=== PATIENT | female | born 1935 | race Caucasian/White ===

== ENCOUNTER 2016-12-11 12:18 | Inpatient (IN) ==
[2016-12-11] MEDS ORDERED: ONDANSETRON 4 MG/2 ML VIAL IV PRN (14:31)
[2016-12-11] MEDS ORDERED: DOCUSATE SODIUM 100 MG CAPSULE PO PRN (14:31)
[2016-12-11] MEDS ORDERED: ACETAMINOPHEN 325 MG TABLET PO PRN (14:31)
--- NOTE | 2016-12-11 15:06 | Hospitalist History & Physical ---
<Gely Pollockda - Last Filed: 12/11/16 15:04> Assessment and Plan (1) Dyspnea Status: Acute Assessment and plan: We will admit this patient. We will perform a complete cardiac work-up. We will obtain echocardiogram and carotid dopplers. Consult Cardiology for evaluation. Current Visit: Yes (2) Afib Status: Acute Assessment and plan: Stable at the time of assessment. Will monitor for abnormalities. Will resume all home medications as previously ordered. Current Visit: Yes History of Present Illness Chief complaint: shortness of breath History of present illness: This is very pleasant and vibrant 81 year-old elderly female that presents to [facility] as a direct [place] [facility] [place] She has an impressive medical history of cerebral vascular accident, hypertension, atrial fibrillation. She has also an extensive surgical history of appendectomy , hysterectomy, and numerous orthopedic procedures. She is very independent. [place] She reports that she stills drives her tractor and car every day. She states that "she does what she wants to do when she feels like it" and "I like to work'. The patient was seen and evaluated today for dyspnea. She exhibited dyspnea at rest and minimal exertion. She reports the onset of dyspnea "a couple of days ago". She reports that her neighbor's dog and she dug a hole for them to bury the dog in. Her symptoms became progressively worse as the time progressed. Her PCP suggested that the source of her dyspnea is cardiac and attempted to make a cardiology consultation for her; however the appointment was scheduled for late next week. The were concerned and decided to sent to her the hospital as a direct admission. The hospitalist service was consulted for medical management. A cardiology consult has been requested for evaluation. Home Medications Medication Instructions Recorded Confirmed Type Aspirin [Ecotrin] 325 mg PO DAILY 12/11/16 12/11/16 History Calcium Carbonate 600 mg PO DAILY 12/11/16 12/11/16 History Dimenhydrinate [Dramamine Chew tab] 12.5 tablet PO DAILY PRN 12/11/16 12/11/16 History Dipyridamole 25 tablet PO TID 12/11/16 12/11/16 History Hyoscyamine Tab [Levsin Tab] 0.125 tablet PO BID PRN 12/11/16 12/11/16 History Meloxicam 15 tablet PO DAILY 12/11/16 12/11/16 History Multivitamin [One Daily] 1 each PO DAILY 12/11/16 12/11/16 History Verapamil HCl [Verapamil ER Cap] 240 tablet PO DAILY 12/11/16 12/11/16 History hydroCHLOROthiazide 12.5 mg PO DAILY 12/11/16 12/11/16 History [Hydrochlorothiazide] Allergies Allergy/AdvReac Type Severity Reaction Status Date / Time mesalamine [From Asacol] Allergy Verified 12/11/16 14:03 sulfamethoxazole Allergy Verified 12/11/16 14:03 [From Bactrim] trimethoprim [From Bactrim] Allergy Verified 12/11/16 14:03 Medical,Surgical,& Family Hx - Medical History Cardio: History of: Cardiac Dysrhythmia (Afib), Hypertension Neurology: History of: Cerebrovascular Accident Musculoskeletal: History of: Musculoskeletal Problems (arthritis) - Surgical History Abdominal Surgeries: Surgical HX of: Appendectomy (1948) Reproductive Surgeries: Surgical HX of;: Hysterectomy (1983) Orthopedic Surgeries: Surgical HX of;: Total Knee Replacement (2003) - Family History Family History: Reports;: Family Cancer (brother), Family Hematology (father blood clot in colon), Family Stroke (mother) - Social History Smoking Status: Never smoker Have you smoked in the last 12 months: No Frequency of Alcohol Use: None Type of Drug Use: None Marital Status: Single Lives With:: Alone Functional capacity: independent ambulation 12 point system: reviewed and no additional remarkable complaints except as stated - Constitutional Constitutional: Present: fatigue, malaise. Absent: anorexia, chills, daytime sleepiness, excessive sweating, lethargy, weakness, weight gain - EENT Eyes: Absent: diplopia, loss of vision Ears: Absent: ear discharge, ear pain, tinnitus Nose, mouth and throat: Absent: epistaxis, headache(s), sinus pressure, vertigo - Cardiovascular Cardiovascular: Present: dyspnea, dyspnea on exertion, other. Absent: chest pain at rest, chest pain with activity, diaphoresis, edema, radiating jaw, neck or arm pain, lightheadedness, orthopnea, palpitations, PND - Respiratory Respiratory: Present: dyspnea, dyspnea on exertion, pain on inspiration. Absent : cough - Gastrointestinal Gastrointestinal: Absent: abdominal pain, change in bowel habits, constipation, diarrhea, dyspepsia, dysphagia, melena, nausea, vomiting - Genitourinary Genitourinary: Absent: dysuria, flank pain, hematuria, urinary frequency, urinary hesitancy, urinary incontinence - Musculoskeletal Musculoskeletal: Absent: back pain, joint swelling, limited range of motion, muscle cramps, muscle weakness - Neurological Neurological: Absent: abnormal gait, abnormal speech, behavioral changes, dizziness, focal weakness, frequent falls, headache(s), numbness, paresthesias, syncope - Psychiatric Psychiatric: Absent: auditory hallucinations, confusion, memory loss, suicidal ideation, visual hallucinations - Endocrine Endocrine: Absent: polydipsia, polyphagia, polyuria Exam - Constitutional Vitals: Period Temp Pulse Resp BP Sys/Powell Pulse Ox Last 24 Hr 98.3 F 71 20 140/71 95 General appearance: normal weight, no acute distress - Head Head exam: Present: normal inspection, normocephalic, atraumatic - Eye Eye exam: Present: EOMI. Absent: periorbital swelling, scleral icterus, laceration to eyelids Pupils: Present: CATIE, normal accommodation - ENT ENT exam: Present: normal exam - Neck Neck exam: Present: normal inspection. Absent: lymphadenopathy, meningismus, tenderness, thyromegaly - Respiratory Respiratory exam: Present: clear to auscultation bilaterally - Cardiovascular Cardiovascular exam: Present: irregular rhythm. Absent: carotid bruit, diastolic murmur, gallop, JVD, systolic murmur - GI/Abdominal GI/Abdominal exam: Present: normal bowel sounds, soft. Absent: distended, guarding, mass, tenderness - Extremities Exam Extremities exam: Present: normal inspection, full ROM. Absent: edema - Back Exam Back exam: Present: normal inspection. Absent: CVA tenderness (L), CVA tenderness (R) - Neurological Exam Neurological exam: Present: alert, oriented X3, CN II-XII intact - Psychiatric Psychiatric exam: Present: normal affect. Absent: homicidal ideation, suicidal ideation - Skin Skin exam: Present: normal color, warm, erythema Quality Measures - VTE Contraindication to Pharmacological VTE Prophylaxis: Clinical assessment deems Pt at low risk, no prophalaxis needed - Stroke Symptom Onset Unknown: No <Amanda Robbins - Last Filed: 12/11/16 17:47> History of Present Illness History of present illness: Ms. Calderón is a 81 year old female with SOB. Clinically she doesnt sound wet.Echo showed left ventricular EF-65% with diastolic parameters most consistent with grade 2 diastolic dysfunction or pseudonormalization. Plan -FBC -CMP -Ddimer, if positive get CT chest vs VQ to r/o PE depending on the kidney statuscbc -Cardiac enzymes -CXR r/o pneumonia -cultures -UA Exam - Constitutional Vitals: Period Temp Pulse Resp BP Sys/Powell Pulse Ox Last 24 Hr 98.0 F-98.3 F 68-71 18-20 130-140/69-71 94-95
[2016-12-11 15:42] LABS: Risk Ratio 3.79; Thyroid Stimulating Hormone 10.9 uIU/ml (0.358-3.74); VLDL CHOLESTEROL 47.2 MG/DL
--- NOTE | 2016-12-11 15:47 | ECHO Report ---
January, Jackelin Exam Date: 12/11/2016 15:01 Referring Physician: Technologist: Latia Echeverria RDCS Age: 81 Ht (in): 64 Wt (lb): 149 Gender: F Exam Location: [facility] Echo Indications: Shortness of breath, Essential (primary) hypertension BP: 140 / 71 HR: 75 Rhythm: Sinus Technical Quality: IMPRESSIONS Left ventricular ejection fraction is greater than 65 %. Diastolic parameters are most consistent with grade 2 diastolic dysfunction or pseudonormalization. There is no regional wall motion normalities. Mild tricuspid valve regurgitation. Tricuspid regurgitation velocities suggest a RVSP of 37 mmHg plus the right atrial pressure. There is mild tricuspid insufficiency and mild pulmonic insufficiency with the PA pressure estimated to be 37 mmHg/4 mmHg plus right atrial pressure added to each component MEASUREMENTS (Male / Female) Normal Values 2D ECHO LV Diastolic Diameter PLAX 5.1 cm 4.2 - 5.9 / 3.9 - 5.3 cm LV Systolic Diameter PLAX 2.8 cm LV Fractional Shortening PLAX 44.7 % IVS Diastolic Thickness 0.7 cm 0.6 - 1.0 / 0.6 - 0.9 cm LVPW Diastolic Thickness 0.7 cm 0.6 - 1.0 / 0.6 - 0.9 cm RV Internal Dim ED PLAX 2.1 cm Aortic Root Diameter 3.3 cm LA Systolic Diameter LX 4.3 cm 3.0 - 4.0 / 2.7 - 3.8 cm DOPPLER TR Peak Velocity 303.0 cm/s TR Peak Gradient 36.7 mmHg FINDINGS Left Ventricle Normal left ventricular cavity size. Normal left ventricular wall thickness. Left ventricular ejection fraction is greater than 65 %. Diastolic parameters are most consistent with grade 2 diastolic dysfunction or pseudonormalization. There is no regional wall motion normalities. Right Ventricle The right ventricle is normal in size and function. Right Atrium The right atrium is normal in size. Left Atrium The left atrium is mildly enlarged. Mitral Valve Mitral valve sclerosis. Mild mitral annular calcification. Mild mitral valve regurgitation. Aortic Valve Morphologically normal aortic valve without significant sclerosis or stenosis. There is no aortic regurgitation. Tricuspid Valve Morphologically normal tricuspid valve. Mild tricuspid valve regurgitation. Tricuspid regurgitation velocities suggest a RVSP of 37 mmHg plus the right atrial pressure. Pulmonic Valve Morphologically normal pulmonic valve. Mild pulmonary valve regurgitation with EDV of 1 m/sec Pericardium Normal pericardium without effusion. Aorta Normal ascending aorta dimension. Neeru Amin (Electronically Signed) Final Date: 11 December 2016 15:46
--- NOTE | 2016-12-11 16:09 | Cardiology Consult Note ---
Jerry Dennis April RN, am scribing for, and in the presence of, EloisaSiddiqiDO 16 :07. Assessment and Plan - Time spent with patient Time spent with patient: Greater than 30 minutes (Due to assessment, planning, documentation, medication evaluation) (1) Dyspnea Status: Acute Assessment and plan: This is a very long differential. The patient has an elevated TSH but a normal free T4. She has a normal ejection fraction and grade 2 diastolic dysfunction. We will continue her verapamil for now. Consider noninvasive evaluation with stress test as an outpatient if this does not improve or become explained by other diagnosis Current Visit: Yes Qualifiers: Dyspnea type: dyspnea on exertion Qualified Code(s): R06.09 - Other forms of dyspnea (2) Hypertension Status: Chronic Current Visit: Yes (3) Palpitations Status: Acute Assessment and plan: The patient is experienced palpitations for many many years they seem to be getting worse she has them when she exerts herself. Current Visit: Yes History of Present Illness - Data of Consult Patient: new to practice Consult date: 12/11/16 Requesting Physician: Nicolas Pollock - Consult Narrative Reason for consult: Dyspnea History of present illness: Ms. Calderón is a 81 year old female never seen a intermediate accountant and has a history of hypertension and stroke (2000). Surgical history includes bilateral cataract, appendectomy, hysterectomy, left total knee replacement, left thigh, and right ankle. Family history includes brother with cancer, mother with stroke, and father with blood clots in his colon. She states she is a lifetime non-smoker Ms. Calderón states she is very active and was in her usual state of health until this past Wednesday when she noticed she became more fatigued with any exertion. She also noticed that she was short of breath on exertion and was having palpitations almost constantly. In the past she has had palpitations occasionally for several years. She denies having any chest pain, states she does have some shoulder soreness but she thinks that was related to her digging with a shovel. Symptoms continue to get worse and today she sought further evaluation with her primary doctor who sent her to the hospital for admission. Currently she is lying in bed in no acute distress. She states she is only short of breath when she exerts herself but does get short of breath just going to the bathroom. She denies having any palpitations at the present. Telemetry monitoring shows sinus rhythm with heart rates in the 70s. Blood pressure 140/ 71, O2 sat 95% on room air. Ms. Calderón states that she was in her usual state of health she thinks that she overdid it Wednesday as dictated above and she has been not feeling well since that time. She has fatigue she has "fluttering" in her chest and dyspnea on exertion she is dyspneic at rest and dyspneic when she exerts herself even worse. She has had palpitations for many years. She is a retired RN from [employer]. She denies any chest pain she has no family history of premature atherosclerotic heart disease I reviewed her transthoracic echo she has an ejection fraction of greater than 65% and a right ventricular systolic pressure estimated to be 37 mmHg plus the right atrial pressure. I saw and examined with Ms. Lindsey CC: Amanda Robbins MD - Home Medications and Allergies Home Medications: Home Medications Medication Instructions Recorded Confirmed Type Aspirin [Ecotrin] 325 mg PO DAILY 12/11/16 12/11/16 History Calcium Carbonate 600 mg PO DAILY 12/11/16 12/11/16 History Dimenhydrinate [Dramamine Chew tab] 12.5 tablet PO DAILY PRN 12/11/16 12/11/16 History Dipyridamole 25 tablet PO TID 12/11/16 12/11/16 History Hyoscyamine Tab [Levsin Tab] 0.125 tablet PO BID PRN 12/11/16 12/11/16 History Meloxicam 15 tablet PO DAILY 12/11/16 12/11/16 History Multivitamin [One Daily] 1 each PO DAILY 12/11/16 12/11/16 History Verapamil HCl [Verapamil ER Cap] 240 tablet PO DAILY 12/11/16 12/11/16 History hydroCHLOROthiazide 12.5 mg PO DAILY 12/11/16 12/11/16 History [Hydrochlorothiazide] Allergies/Adverse Reactions: Allergies Allergy/AdvReac Type Severity Reaction Status Date / Time mesalamine [From Asacol] Allergy Verified 12/11/16 14:03 sulfamethoxazole Allergy Verified 12/11/16 14:03 [From Bactrim] trimethoprim [From Bactrim] Allergy Verified 12/11/16 14:03 - Constitutional Constitutional: Present: as per HPI - EENT Eyes: Present: requires corrective lense Ears: Present: decreased hearing Nose, mouth and throat: Absent: epistaxis, headache(s), neck pain - Cardiovascular Cardiovascular: Present: dyspnea on exertion, lightheadedness, palpitations. Absent: chest pain at rest, chest pain with activity, diaphoresis, edema, radiating jaw, neck or arm pain, orthopnea - Respiratory Respiratory: Present: dyspnea on exertion. Absent: hemoptysis, wheezing - Gastrointestinal Gastrointestinal: Absent: abdominal pain, constipation, diarrhea, melena, nausea , vomiting - Genitourinary Genitourinary: Absent: dysuria, hematuria - Musculoskeletal Musculoskeletal: Present: limited range of motion. Absent: back pain - Neurological Neurological: Present: dizziness. Absent: abnormal gait, abnormal speech, confusion, frequent falls, headache(s), syncope - Psychiatric Psychiatric: Absent: anxiety, confusion, depression - Endocrine Endocrine: Present: fatigue - Hematologic/Lymphatic Hematologic/Lymphatic: Present: easy bruising Medical,Surgical,& Family Hx - Medical History Cardio: History of: Hypertension Neurology: History of: Cerebrovascular Accident - Surgical History HEENT Surgeries: Surgical HX of: Eye Surgery (Bilateral cataract) Abdominal Surgeries: Surgical HX of: Appendectomy (1948) Reproductive Surgeries: Surgical HX of;: Hysterectomy (1983) Orthopedic Surgeries: Surgical HX of;: Orthopedic Surgery (Left thigh, right ankle), Total Knee Replacement (2003) - Family History Family History: Reports;: Family Cancer (brother), Family Hematology (father blood clot in colon), Family Stroke (mother) - Social History Smoking Status: Never smoker Frequency of Alcohol Use: None Type of Drug Use: None Lives With:: She has 1 son that lives close by one child that lives in [place] and one that is Functional capacity: independent ambulation Physical Examination Vital Signs Temp Pulse Resp BP Pulse Ox 98.3 F 71 20 140/71 95 12/11/16 14:02 12/11/16 14:02 12/11/16 14:02 12/11/16 14:02 12/11/16 14:02 General: Present: Appears Well, No Apparent Distress HEENT: Present: PERRL, Mucus Membranes Moist Neck: Present: Supple Neck, Midline Trachea, No JVD/HJR, No Bruit Cardiac: Present: Reg Rate and Rhythm, No Murmur Lungs: Present: Normal Breath Sounds, No Wheeze, Rales, Rhonchi. Absent: Oxygen Neuro: Absent: Essential Tremor Abdomen: Present: Soft, Active Bowel Sounds, Non-Tender. Absent: Distended Skin: Present: Bruising Musculoskeletal: Present: Decreased Range of Motion Gait: Present: Normal Gait Extremities: Present: No Edema, Normal Upper Extr. Pulses, Normal Lower Extr. Pulses Result/EKG - Labs Lab Results: I have reviewed the past 24 hour labs Labs: Laboratory Results - last 24 hr 12/11/16 12/11/16 12/11/16 14:52 14:52 14:52 Magnesium 2.2 B-Natriuretic Peptide 76 Triglycerides Cholesterol LDL Cholesterol VLDL Cholesterol HDL Cholesterol Heart Disease Risk Ratio Free T4 0.86 TSH 3rd Generation 12/11/16 14:52 Magnesium B-Natriuretic Peptide Triglycerides 236 H Cholesterol 178 LDL Cholesterol 116.0 VLDL Cholesterol 47.2 HDL Cholesterol 47 Heart Disease Risk Ratio 3.79 Free T4 TSH 3rd Generation 10.900 H - EKG EKG results: interpreted by me (Is a normal EKG) EKG shows: sinus rhythm Quality Measures - VTE Contraindication to Pharmacological VTE Prophylaxis: Clinical assessment deems Pt at low risk, no prophalaxis needed - Stroke Symptom Onset Unknown: No I, Neeru Amin, , personally performed the services described in this documentation, ascribed by Hodan Edwards RN in my presence, and it is both accurate and complete .
[2016-12-11] MEDS: SODIUM CHLORIDE 0.9% 1,000 ML IV SCH (16:41)
[2016-12-11] MEDS ORDERED: ENOXAPARIN 40 MG/0.4 ML SYRINGE SUBCUT SCH (18:00)
[2016-12-11 18:15] LABS: Basophils % 0.5 % (0.0-0.8); Eosinophils # 0.2 10*3/uL (0.0-0.87); Eosinophils % 2.7 % (0.00-10.9); Hematocrit 40.9 VOL% (35.7-47.0); Immature Granulocytes % 0.3 %; Immature Granulocytes Absolute 0.02 #; Lymphocytes # 1.8 10*3/uL (1.4-4.0); Lymphocytes % 27.7 % (21.3-54.2); Mean Corpuscular HGB Conc 34.2 GM/DL (32-36); Mean Corpuscular Hemoglobin 31 PG (27-34); Mean Corpuscular Volume 89.5 FL (87-102); Mean Platelet Volume 8.9 FL (9.6-12.0); Monocytes # 0.4 10*3/uL (0.11-0.8); Monocytes % 6.4 % (1.7-12.7); Neutrophils % 62.4 % (38.7-73.9); Platelet Count 121 T/CUMM (130-400); Red Blood Count 4.57 MC/CUMM (3.8-5.5); White Blood Count 6.4 T/CUMM (4-12)
--- NOTE | 2016-12-11 18:37 | XRay Report ---
Chest, 2 views History short of breath The heart is normal in size. There is mild fullness in the right hilum. There is some more confluent 1 cm density in the right suprahilar region. No consolidative infiltrates are seen. Impression: Mild right hilar fullness and perihilar densities may simply be related to vasculature however comparison with any available prior films is recommended to exclude underlying adenopathy PROCEDURE INTERPRETED AT [facility] DEPARTMENT OF RADIOLOGY Final Report Signed by: Dr. Zoila Horan
[2016-12-11 18:49] LABS: Apearance,Urine CLEAR (Clear); Bilirubin,Urine Negative (Negative); Blood, Urine Negative (Negative); Glucose,Urine (UA) Negative (Negative); Ketones,Urine Negative (Negative); Nitrite,Urine Negative (Negative); Protein,Urine Negative; RBC,Urine 1 /HPF (0-4); Squamous Epithelial Cell,Urine Occasional /HPF (0-10); Urine Color Yellow (Yellow); Urine Urobilinogen < 2.0 EU/DL (0.2-1.0); WBC,Urine 3 /HPF (0-6)
[2016-12-11 18:53] LABS: Alanine Aminotransferase 24 U/L (13-56); Albumin 3.6 G/DL (3.4-5.0); Alkaline Phosphatase 89 U/L (45-117); Aspartate Amino Transferase 20 U/L (0-37); Blood Urea Nitrogen 26 MG/DL (7-18); Calcium 8.6 MG/DL (8.5-10.1); Glucose 135 MG/DL (74-106); Osmolality,Calculated 292.8 MOS/KG (273-304); Phosphorous 2.4 MG/DL (2.5-4.9); Sodium 144 MMOL/L (136-145); Total Protein 5.9 G/DL (6.4-8.3)
[2016-12-11 18:56] LABS: Troponin I Only 0.237 NG/ML (0.00-0.045)
[2016-12-12] MEDS: SODIUM CHLORIDE 0.9% 1,000 ML IV SCH (06:00)
[2016-12-12 06:04] LABS: Basophils % 0.4 % (0.0-0.8); Eosinophils # 0.2 10*3/uL (0.0-0.87); Eosinophils % 3.3 % (0.00-10.9); Hematocrit 37.9 VOL% (35.7-47.0); Hemoglobin 12.9 GM/DL (12.0-16.0); Immature Granulocytes % 0.4 %; Immature Granulocytes Absolute 0.02 #; Lymphocytes # 1.3 10*3/uL (1.4-4.0); Lymphocytes % 24.4 % (21.3-54.2); Mean Corpuscular Hemoglobin 30 PG (27-34); Mean Corpuscular Volume 89.2 FL (87-102); Mean Platelet Volume 8.7 FL (9.6-12.0); Monocytes # 0.4 10*3/uL (0.11-0.8); Monocytes % 7.4 % (1.7-12.7); Neutrophils # 3.3 10*3/uL (1.4-7.4); Neutrophils % 64.1 % (38.7-73.9); Platelet Count 106 T/CUMM (130-400); Red Blood Count 4.25 MC/CUMM (3.8-5.5); Red Cell Distribution Width 13.1 % (9.3-17.3); White Blood Count 5.1 T/CUMM (4-12)
[2016-12-12 06:42] LABS: Bilirubin,Total 0.6 MG/DL (0.2-1.0); Calcium 8.2 MG/DL (8.5-10.1); Magnesium 1.9 MG/DL (1.8-2.4); Osmolality,Calculated 297.4 MOS/KG (273-304); Phosphorous 2.5 MG/DL (2.5-4.9); Potassium 4.2 MMOL/L (3.5-5.1); Total Protein 5.5 G/DL (6.4-8.3)
[2016-12-12] MEDS ORDERED: CALCIUM (CARBONATE) 600 MG TABLET PO SCH (09:00)
[2016-12-12] MEDS ORDERED: PANTOPRAZOLE 40 MG TABLET PO SCH (09:00)
[2016-12-12] MEDS ORDERED: hydroCHLOROthiazide 12.5 MG CAPSULE PO SCH (09:00)
[2016-12-12] MEDS ORDERED: MULTIVITAMIN (CENTRUM) TABLET PO SCH (09:00)
[2016-12-12] MEDS ORDERED: VERAPAMIL SR 240 MG TABLET PO SCH (09:00)
--- NOTE | 2016-12-12 09:02 | XRay Report ---
History short of breath Chest, 2 views Comparison 12/11/2016 Mediastinal and hilar contours unchanged. There is slight right hilar fullness has a less pronounced appearance than on the prior study. Suprahilar density is also slightly less pronounced and has more the appearance of vasculature on the current exam. Confluent shadows again overlie the right apex No congestive failure or confluent infiltrate is seen. Impression: 1. Prior right hilar prominence has a less pronounced appearance on the current study and is likely vasculature. Comparison with any available more remote studies would still be helpful for confirmation PROCEDURE INTERPRETED AT [facility] DEPARTMENT OF RADIOLOGY Final Report Signed by: Dr. Zoila Horan
--- NOTE | 2016-12-12 09:13 | EKG Report ---
Stationary ECG Study [facility] Test Date: 12/12/2016 8:54:22 AM Pat Name: CHUCK GARLAND Department: Room: 521 Gender: F Department Chairperson: YANELI : 1935 Requested by: Vivi Pollock Order Number: [id number] Reading MD: ARNULFO VIRAMONTES Intervals [place] Rate: 72 P: 76 HI: 142 QRS: 38 QRSD: 83 T: 3 QT: 374 QTc: 398 Interpretive Statements SINUS RHYTHM NORMAL ECG Electronically Signed On 12-12-16 20:10:17 CDT by ARNULFO VIRAMONTES [email or web address]
[2016-12-12] MEDS ORDERED: hydroCHLOROthiazide 25 MG TABLET PO SCH (10:49)
--- NOTE | 2016-12-12 10:52 | Cardiology Progress Note ---
Assessment and Plan (1) Dyspnea Status: Acute Assessment and plan: This is a very long differential. The patient has an elevated TSH but a normal free T4. She has a normal ejection fraction and grade 2 diastolic dysfunction. We will continue her verapamil for now. Consider noninvasive evaluation with stress test as an outpatient if this does not improve or become explained by other diagnosis Current Visit: Yes Qualifiers: Dyspnea type: dyspnea on exertion Qualified Code(s): R06.09 - Other forms of dyspnea (2) Hypertension Status: Chronic Current Visit: Yes (3) Palpitations Status: Acute Assessment and plan: The patient is experienced palpitations for many many years they seem to be getting worse she has them when she exerts herself. There are no dysrhythmias on telemetry. Current Visit: Yes (4) Elevated troponin I measurement Status: Acute Assessment and plan: A single troponin was checked yesterday was 0.237 I will recheck today to make sure there is no kinetic change. Current Visit: Yes Cardiology - PN: Subj Interval history: Ms. Calderón is lying completely flat on the bed without orthopnea. I asked her about shortness of breath and she states it is about the same that she gets short of breath while up and walking in the room. Her blood pressure slightly elevated I will increase her hydrochlorothiazide. Consider adding a second agent if it stays elevated. From a cardiovascular standpoint the patient may have an outpatient nuclear stress test as the only other clear etiology to contribute to her dyspnea. A walking nuclear stress test would be best to assess her ability to walk any hypoxemia that may occur can also be evaluated during this time. She does have diastolic dysfunction but her systolic function is normal and normal estimated right-sided pressures or at least minimally elevated. Exam (Progress Note) - Constitutional Vitals: Period Temp Pulse Resp BP Sys/Powell Pulse Ox Last 24 Hr 97.2 F-98.8 F 64-74 18-20 118-153/52-81 94-97 General appearance: normal weight - Head Head exam: Present: normal inspection - Eye Eye exam: Present: EOMI Pupils: Present: CATIE - ENT ENT exam: Present: normal exam - Neck Neck exam: Present: normal inspection - Respiratory Respiratory exam: Present: clear to auscultation bilaterally - Cardiovascular Cardiovascular exam: Present: regular rate and rhythm - GI/Abdominal GI/Abdominal exam: Present: normal bowel sounds - Back Exam Back exam: Present: normal inspection - Neurological Exam Neurological exam: Present: alert, oriented X3 - Psychiatric Psychiatric exam: Present: anxious - Skin Skin exam: Present: normal color, warm, dry Result/EKG - Labs CBC & BMP: 12/12/16 05:31 12/12/16 05:31 Labs: Laboratory Results - last 24 hr 12/11/16 12/11/16 12/11/16 14:52 14:52 14:52 WBC RBC Hgb Hct MCV MCH MCHC RDW Plt Count MPV Neut % (Auto) Lymph % (Auto) [place] % (Auto) Eos % (Auto) Baso % (Auto) Neut # (Auto) Lymph # (Auto) [place] # (Auto) Eos # (Auto) Baso # (Auto) Immature Gran % Nucleated RBC % Immature Gran # Nucleated RBCs # D-Dimer, Quantitative Sodium Potassium Chloride Carbon Dioxide Anion Gap BUN Creatinine GFR Calculation BUN/Creatinine Ratio Glucose Calculated Osmolality Calcium Phosphorus Magnesium 2.2 Total Bilirubin AST ALT Alkaline Phosphatase Total Creatine Kinase CK-MB (CK-2) Troponin I B-Natriuretic Peptide 76 Total Protein Albumin Globulin Albumin/Globulin Ratio Triglycerides Cholesterol LDL Cholesterol VLDL Cholesterol HDL Cholesterol Heart Disease Risk Ratio Free T4 0.86 TSH 3rd Generation Urine Color Urine Appearance Urine pH Ur Specific [place] Urine Protein Urine Glucose (UA) Urine Ketones Urine Blood Urine Nitrate Urine Bilirubin Urine Urobilinogen Urine Leukocytes Urine RBC Urine WBC Ur Squamous Epith Cells Ur Culture Indicated? 12/11/16 12/11/16 12/11/16 14:52 17:59 17:59 WBC 6.4 RBC 4.57 Hgb 14.0 Hct 40.9 MCV 89.5 MCH 31 MCHC 34.2 RDW 13.0 Plt Count 121 L MPV 8.9 L Neut % (Auto) 62.4 Lymph % (Auto) 27.7 [place] % (Auto) 6.4 Eos % (Auto) 2.7 Baso % (Auto) 0.5 Neut # (Auto) 4.0 Lymph # (Auto) 1.8 [place] # (Auto) 0.4 Eos # (Auto) 0.2 Baso # (Auto) 0.0 Immature Gran % 0.3 Nucleated RBC % 0.0 Immature Gran # 0.02 Nucleated RBCs # 0.00 D-Dimer, Quantitative 1.0 Sodium Potassium Chloride Carbon Dioxide Anion Gap BUN Creatinine GFR Calculation BUN/Creatinine Ratio Glucose Calculated Osmolality Calcium Phosphorus Magnesium Total Bilirubin AST ALT Alkaline Phosphatase Total Creatine Kinase CK-MB (CK-2) Troponin I B-Natriuretic Peptide Total Protein Albumin Globulin Albumin/Globulin Ratio Triglycerides 236 H Cholesterol 178 LDL Cholesterol 116.0 VLDL Cholesterol 47.2 HDL Cholesterol 47 Heart Disease Risk Ratio 3.79 Free T4 TSH 3rd Generation 10.900 H Urine Color Urine Appearance Urine pH Ur Specific [place] Urine Protein Urine Glucose (UA) Urine Ketones Urine Blood Urine Nitrate Urine Bilirubin Urine Urobilinogen Urine Leukocytes Urine RBC Urine WBC Ur Squamous Epith Cells Ur Culture Indicated? 12/11/16 12/11/16 12/12/16 17:59 Unknown 05:31 WBC 5.1 RBC 4.25 Hgb 12.9 Hct 37.9 MCV 89.2 MCH 30 MCHC 34.0 RDW 13.1 Plt Count 106 L MPV 8.7 L Neut % (Auto) 64.1 Lymph % (Auto) 24.4 [place] % (Auto) 7.4 Eos % (Auto) 3.3 Baso % (Auto) 0.4 Neut # (Auto) 3.3 Lymph # (Auto) 1.3 L [place] # (Auto) 0.4 Eos # (Auto) 0.2 Baso # (Auto) 0.0 Immature Gran % 0.4 Nucleated RBC % 0.0 Immature Gran # 0.02 Nucleated RBCs # 0.00 D-Dimer, Quantitative Sodium 144 Potassium 4.0 Chloride 104 Carbon Dioxide 34 H Anion Gap 10.0 BUN 26 H Creatinine 1.00 GFR Calculation 52 BUN/Creatinine Ratio 26.00 H Glucose 135 H Calculated Osmolality 292.8 Calcium 8.6 Phosphorus 2.4 L Magnesium 2.0 Total Bilirubin 0.50 AST 20 ALT 24 Alkaline Phosphatase 89 Total Creatine Kinase 58 CK-MB (CK-2) 1.7 Troponin I 0.237 H B-Natriuretic Peptide Total Protein 5.9 L Albumin 3.6 Globulin 2.3 Albumin/Globulin Ratio 1.5 Triglycerides Cholesterol LDL Cholesterol VLDL Cholesterol HDL Cholesterol Heart Disease Risk Ratio Free T4 TSH 3rd Generation Urine Color Yellow Urine Appearance Clear Urine pH 7.0 Ur Specific [place] 1.010 Urine Protein Negative Urine Glucose (UA) Negative Urine Ketones Negative Urine Blood Negative Urine Nitrate Negative Urine Bilirubin Negative Urine Urobilinogen < 2.0 H Urine Leukocytes Trace Urine RBC 1 Urine WBC 3 Ur Squamous Epith Cells Occasional Ur Culture Indicated? Not indicated 12/12/16 05:31 WBC RBC Hgb Hct MCV MCH MCHC RDW Plt Count MPV Neut % (Auto) Lymph % (Auto) [place] % (Auto) Eos % (Auto) Baso % (Auto) Neut # (Auto) Lymph # (Auto) [place] # (Auto) Eos # (Auto) Baso # (Auto) Immature Gran % Nucleated RBC % Immature Gran # Nucleated RBCs # D-Dimer, Quantitative Sodium 147 H Potassium 4.2 Chloride 109 H Carbon Dioxide 29 Anion Gap 13.2 BUN 28 H Creatinine 1.10 H GFR Calculation 47 BUN/Creatinine Ratio 25.00 H Glucose 97 Calculated Osmolality 297.4 Calcium 8.2 L Phosphorus 2.5 Magnesium 1.9 Total Bilirubin 0.60 AST 17 ALT 17 Alkaline Phosphatase 79 Total Creatine Kinase CK-MB (CK-2) Troponin I B-Natriuretic Peptide Total Protein 5.5 L Albumin 3.0 L Globulin 2.5 Albumin/Globulin Ratio 1.2 Triglycerides Cholesterol LDL Cholesterol VLDL Cholesterol HDL Cholesterol Heart Disease Risk Ratio Free T4 TSH 3rd Generation Urine Color Urine Appearance Urine pH Ur Specific [place] Urine Protein Urine Glucose (UA) Urine Ketones Urine Blood Urine Nitrate Urine Bilirubin Urine Urobilinogen Urine Leukocytes Urine RBC Urine WBC Ur Squamous Epith Cells Ur Culture Indicated? Quality Measures - VTE Contraindication to Pharmacological VTE Prophylaxis: Clinical assessment deems Pt at low risk, no prophalaxis needed - Stroke Symptom Onset Unknown: No
--- NOTE | 2016-12-12 12:07 | Hospitalist Progress Note ---
Addendum entered and electronically signed by Nicolas Pollock CNP 12/12/16 12 :14: Due to her underlying cardiac issues, will start Synthroid at 50mcg. Original Note: Assessment and Plan (1) Dyspnea Status: Acute Assessment and plan: Continue plan of care as previously ordered. Cardiology to assist in management. Current Visit: Yes Qualifiers: Dyspnea type: dyspnea on exertion Qualified Code(s): R06.09 - Other forms of dyspnea (2) Afib Status: Acute Assessment and plan: Rate is controlled. Will monitor for abnormalities. Continue all home medications as previously ordered. Current Visit: Yes (3) Hypothyroidism Status: Acute Assessment and plan: TSH 10.90. Will start Synthroid at low dose today. Current Visit: Yes Hospitalist: Subjective Interval history: Patient seen and examined. No significant overnight issues reported. Troponin level trending down from 0.237 to 0.127 respectively. Gross elevation in TSH; THS 10.90. Will start low-dose Synthroid today. Exam - Constitutional Vitals: Period Temp Pulse Resp BP Sys/Powell Pulse Ox Last 24 Hr 97.2 F-98.8 F 64-74 18-20 118-153/52-81 94-97 General appearance: normal weight, no acute distress - Head Head exam: Present: normal inspection, normocephalic, atraumatic. Absent: contusion, hematoma - Eye Eye exam: Present: EOMI. Absent: periorbital swelling Pupils: Present: CATIE, normal accommodation - ENT ENT exam: Present: normal exam - Neck Neck exam: Present: normal inspection. Absent: lymphadenopathy, meningismus, thyromegaly - Respiratory Respiratory exam: Present: clear to auscultation bilaterally. Absent: rales, rhonchi, stridor, wheezes - Cardiovascular Cardiovascular exam: Present: irregular rhythm. Absent: carotid bruit, diastolic murmur, gallop, JVD, rubs, systolic murmur - GI/Abdominal GI/Abdominal exam: Present: normal bowel sounds, soft. Absent: firm, mass, tenderness - Extremities Exam Extremities exam: Present: normal inspection, full ROM. Absent: edema - Back Exam Back exam: Absent: normal inspection - Neurological Exam Neurological exam: Present: alert, oriented X3, normal gait, CN II-XII intact - Psychiatric Psychiatric exam: Present: normal affect - Skin Skin exam: Present: normal color, dry Results - Labs CBC & BMP: 12/12/16 05:31 12/12/16 05:31 Lab Results: I have reviewed the past 24 hour labs Quality Measures - VTE Contraindication to Pharmacological VTE Prophylaxis: Clinical assessment deems Pt at low risk, no prophalaxis needed - Stroke Symptom Onset Unknown: No
[2016-12-12 15:28] VITALS: BP 138/58
--- NOTE | 2016-12-12 16:11 | Discharge Summary ---
Hospital Course - Hospital Course Hospital Course: 81yr old with multiple medical issues who presents with SOB. Her troponin was elevated, Cardiology was consulted.D-dimer was normal but her TSH was really high at 10.9 but a normal T4. She was statrted on a low dose synthroid. Her electrolytes were fairly decent.Echo showed normal LV size, normal left ventricular wall thickness with EF-65%. Grade 2 diastolic dysfuction.cardiology suggests to consider noninvasive evaluation with stress test as an outpatient if this does not improve or become explained by other diagnosis.Her vitals were stable, patient wants to go home today and follow with cardiology in clinic. - Time spent with patient Time with patient DS: Greater than 30 minutes Diagnosis - Discharge Diagnosis (1) Hypothyroidism Status: Acute (2) Palpitations Status: Acute (3) Dyspnea Status: Acute (4) Hypertension Status: Chronic Discharge Plan - Discharge Data Disposition: Disch To Home/Self Care Condition at Discharge: Stable Discharge Diet: advance to your usual diet Activity: resume usual activities as tolerated - Discharge Medications New Acetaminophen Tab [Tylenol Tab] 650 mg PO Q4H PRN #0 tablet PRN Reason: Fever, Headache, Mild Pain Levothyroxine Tab [Synthroid Tab] 25 mcg PO DAILY@0700 #30 tablet Continue Calcium Carbonate 600 mg PO DAILY Multivitamin [One Daily] 1 each PO DAILY Meloxicam 15 tablet PO DAILY Hyoscyamine Tab [Levsin Tab] 0.125 tablet PO BID PRN PRN Reason: Abdominal Pain Dipyridamole 25 tablet PO TID hydroCHLOROthiazide [Hydrochlorothiazide] 12.5 mg PO DAILY Aspirin [Ecotrin] 325 mg PO DAILY Verapamil HCl [Verapamil ER Cap] 240 tablet PO DAILY Dimenhydrinate [Dramamine Chew tab] 12.5 tablet PO DAILY PRN PRN Reason: Sleep - Follow Up or Referral - Forms/Instructions Additional Discharge Instructions: Follow with PCP in 1week, follw with cardiology as scheduled. Oupt stress test Exam - Constitutional Vitals: Period Temp Pulse Resp BP Sys/Powell Pulse Ox Last 24 Hr 97.2 F-98.8 F 64-74 18-18 118-153/52-81 94-97 General appearance: no acute distress - Head Head exam: Present: normal inspection - Respiratory Respiratory exam: Present: clear to auscultation bilaterally - Cardiovascular Cardiovascular exam: Present: regular rate and rhythm - GI/Abdominal GI/Abdominal exam: Present: normal bowel sounds Discharge Results Procedures and tests throughout hospitalization: Pending Orders 12/11/16 17:46 Urine Culture Routine 12/11/16 17:59 Blood Culture Routine 12/12/16 15:49 Troponin,CKMB & Ck Total Routine 12/13/16 04:00 CBC [Comp Blood Count Auto Diff] IN AM CMP [Comprehensive Metabolic Panel] IN AM Magnesium IN AM Phosphorous IN AM Troponin I Only IN AM Labs on day of discharge: Labs from last 24 hours 12/12/16 12/12/16 12/12/16 11:10 05:31 05:31 WBC 5.1 RBC 4.25 Hgb 12.9 Hct 37.9 MCV 89.2 MCH 30 MCHC 34.0 RDW 13.1 Plt Count 106 L MPV 8.7 L Neut % (Auto) 64.1 Lymph % (Auto) 24.4 [place] % (Auto) 7.4 Eos % (Auto) 3.3 Baso % (Auto) 0.4 Neut # (Auto) 3.3 Lymph # (Auto) 1.3 L [place] # (Auto) 0.4 Eos # (Auto) 0.2 Baso # (Auto) 0.0 Immature Gran % 0.4 Nucleated RBC % 0.0 Immature Gran # 0.02 Nucleated RBCs # 0.00 D-Dimer, Quantitative Sodium 147 H Potassium 4.2 Chloride 109 H Carbon Dioxide 29 Anion Gap 13.2 BUN 28 H Creatinine 1.10 H GFR Calculation 47 BUN/Creatinine Ratio 25.00 H Glucose 97 Calculated Osmolality 297.4 Calcium 8.2 L Phosphorus 2.5 Magnesium 1.9 Total Bilirubin 0.60 AST 17 ALT 17 Alkaline Phosphatase 79 Total Creatine Kinase CK-MB (CK-2) Troponin I 0.127 H D Total Protein 5.5 L Albumin 3.0 L Globulin 2.5 Albumin/Globulin Ratio 1.2 Urine Color Urine Appearance Urine pH Ur Specific [place] Urine Protein Urine Glucose (UA) Urine Ketones Urine Blood Urine Nitrate Urine Bilirubin Urine Urobilinogen Urine Leukocytes Urine RBC Urine WBC Ur Squamous Epith Cells Ur Culture Indicated? 12/11/16 12/11/16 12/11/16 Unknown 17:59 17:59 WBC RBC Hgb Hct MCV MCH MCHC RDW Plt Count MPV Neut % (Auto) Lymph % (Auto) [place] % (Auto) Eos % (Auto) Baso % (Auto) Neut # (Auto) Lymph # (Auto) [place] # (Auto) Eos # (Auto) Baso # (Auto) Immature Gran % Nucleated RBC % Immature Gran # Nucleated RBCs # D-Dimer, Quantitative 1.0 Sodium 144 Potassium 4.0 Chloride 104 Carbon Dioxide 34 H Anion Gap 10.0 BUN 26 H Creatinine 1.00 GFR Calculation 52 BUN/Creatinine Ratio 26.00 H Glucose 135 H Calculated Osmolality 292.8 Calcium 8.6 Phosphorus 2.4 L Magnesium 2.0 Total Bilirubin 0.50 AST 20 ALT 24 Alkaline Phosphatase 89 Total Creatine Kinase 58 CK-MB (CK-2) 1.7 Troponin I 0.237 H Total Protein 5.9 L Albumin 3.6 Globulin 2.3 Albumin/Globulin Ratio 1.5 Urine Color Yellow Urine Appearance Clear Urine pH 7.0 Ur Specific [place] 1.010 Urine Protein Negative Urine Glucose (UA) Negative Urine Ketones Negative Urine Blood Negative Urine Nitrate Negative Urine Bilirubin Negative Urine Urobilinogen < 2.0 H Urine Leukocytes Trace Urine RBC 1 Urine WBC 3 Ur Squamous Epith Cells Occasional Ur Culture Indicated? Not indicated 12/11/16 17:59 WBC 6.4 RBC 4.57 Hgb 14.0 Hct 40.9 MCV 89.5 MCH 31 MCHC 34.2 RDW 13.0 Plt Count 121 L MPV 8.9 L Neut % (Auto) 62.4 Lymph % (Auto) 27.7 [place] % (Auto) 6.4 Eos % (Auto) 2.7 Baso % (Auto) 0.5 Neut # (Auto) 4.0 Lymph # (Auto) 1.8 [place] # (Auto) 0.4 Eos # (Auto) 0.2 Baso # (Auto) 0.0 Immature Gran % 0.3 Nucleated RBC % 0.0 Immature Gran # 0.02 Nucleated RBCs # 0.00 D-Dimer, Quantitative Sodium Potassium Chloride Carbon Dioxide Anion Gap BUN Creatinine GFR Calculation BUN/Creatinine Ratio Glucose Calculated Osmolality Calcium Phosphorus Magnesium Total Bilirubin AST ALT Alkaline Phosphatase Total Creatine Kinase CK-MB (CK-2) Troponin I Total Protein Albumin Globulin Albumin/Globulin Ratio Urine Color Urine Appearance Urine pH Ur Specific [place] Urine Protein Urine Glucose (UA) Urine Ketones Urine Blood Urine Nitrate Urine Bilirubin Urine Urobilinogen Urine Leukocytes Urine RBC Urine WBC Ur Squamous Epith Cells Ur Culture Indicated? Preliminary micro results at discharge 03/24/17 17:46 Urine Culture - Preliminary Urine,Voided No Growth at 12 hours. DS: Provider Date of admission: 12/11/16 13:01 Primary care physician: . No PCP Attending physician on admission: Amanda Robbins MD Consults: 12/11/16 14:31 Consult to Physician [CONS] Routine Comment: Consulting Provider: Benson Valladares When should Consulting Provider be notified: Now Person Notified: md aware Date Notified: 12/11/16 Time Notified: 15:27 12/11/16 15:03 Consult to Pharmacy [CONS] Routine Reason for Pharmacy Consult: Adjust Meds Renal Funct Discharging clinician: Amanda Robbins MD
[2016-12-12 16:22] LABS: Troponin I Only 0.152 NG/ML (0.00-0.045)
[2016-12-13] MEDS ORDERED: LEVOTHYROXINE 50 MCG TABLET PO SCH ×2 (07:00)
[2016-12-13] MEDS ORDERED: LEVOTHYROXINE 25 MCG TABLET PO SCH (07:00)
== END 2016-12-12 17:20 | disposition home or self-care (01) | DRG 204 ==
LOC: N.5E 13:01
PROVIDERS: ADMIT Internal Medicine; ATTEND Internal Medicine

== ENCOUNTER 2019-03-18 10:50 | Observation (INO) ==
[2019-03-18] MEDS ORDERED: MECLIZINE 25 MG TABLET PO STA (11:19)
[2019-03-18 12:03] LABS: Basophils % 0.2 % (0.0-0.8); Eosinophils % 0.6 % (0.00-10.9); Hematocrit 44.4 VOL% (35.7-47.0); Hemoglobin 14.5 GM/DL (12.0-16.0); Immature Granulocytes % 0.3 %; Immature Granulocytes Absolute 0.02 #; Lymphocytes % 15.4 % (21.3-54.2); Mean Corpuscular HGB Conc 32.7 GM/DL (32-36); Mean Corpuscular Volume 97.2 FL (87-102); Mean Platelet Volume 8.6 FL (9.6-12.0); Monocytes % 5.7 % (1.7-12.7); Neutrophils % 77.8 % (38.7-73.9); Platelet Count 130 T/CUMM (130-400); Red Blood Count 4.57 MC/CUMM (3.8-5.5); Red Cell Distribution Width 12.9 % (9.3-17.3); White Blood Count 6.2 T/CUMM (4-12)
[2019-03-18 12:12] LABS: INR 1.8; PT Patient Result 19.8 SECS
[2019-03-18 12:31] LABS: Calcium 9.9 MG/DL (8.5-10.1); Osmolality,Calculated 285.4 MOS/KG (273-304)
[2019-03-18] MEDS ORDERED: ACETAMINOPHEN 325 MG TABLET PO PRN (14:15)
[2019-03-18] MEDS ORDERED: ONDANSETRON 4 MG/2 ML VIAL IV PRN (14:15)
[2019-03-18] MEDS: SODIUM CHLORIDE 0.9% 1,000 ML IV SCH (16:02)
[2019-03-18] MEDS ORDERED: WARFARIN 2 MG TABLET PO SCH (18:00)
[2019-03-18 18:01] LABS: Apearance,Urine CLEAR (Clear); Bacteria,Urine Occasional /HPF (Few); Bilirubin,Urine Negative (Negative); Blood, Urine Negative (Negative); Glucose,Urine (UA) Negative (Negative); Hyaline Casts,Urine 1 /LPF (0-3); Ketones,Urine Negative (Negative); Nitrite,Urine Negative (Negative); Protein,Urine Negative; RBC,Urine 1 /HPF (0-4); Squamous Epithelial Cell,Urine Occasional /HPF (0-10); Urine Color Yellow (Yellow); Urine Specific Gravity 1.013 (1.001-1.035); Urine Urobilinogen < 2.0 EU/DL (0.2-1.0); WBC,Urine <1 /HPF (0-6)
[2019-03-18] MEDS: POLYETHYLENE GLYCOL POWDER 17 GM PACK PO SCH (20:40)
[2019-03-18] MEDS ORDERED: CALCIUM (CARBONATE)/VITAMIN D 600 MG-400 UNIT TABLET PO SCH (21:00)
[2019-03-19] MEDS: SODIUM CHLORIDE 0.9% 1,000 ML IV SCH (05:06)
[2019-03-19 07:43] VITALS: BP 151/78
[2019-03-19] MEDS ORDERED: LORazepam 0.5 MG TABLET PO PRN (08:32)
[2019-03-19] MEDS ORDERED: SCOPOLAMINE 1.5 MG PATCH TRANSDERM ONE (08:36)
[2019-03-19] MEDS ORDERED: ASPIRIN EC 81 MG TABLET PO SCH (09:00)
[2019-03-19] MEDS ORDERED: AMIODARONE 200 MG TABLET PO SCH (09:00)
[2019-03-19] MEDS ORDERED: PANTOPRAZOLE 40 MG TABLET PO SCH (09:00)
[2019-03-19] MEDS ORDERED: MULTIVITAMIN (CENTRUM) TABLET PO SCH (09:00)
[2019-03-19] MEDS ORDERED: MECLIZINE 12.5 MG TABLET PO SCH (09:00)
[2019-03-19] MEDS ORDERED: VERAPAMIL SR 240 MG TABLET PO SCH (09:00)
[2019-03-19] MEDS ORDERED: IBUPROFEN 200 MG TABLET PO SCH (09:00)
[2019-03-19] MEDS ORDERED: LEVOTHYROXINE 50 MCG TABLET PO SCH (09:00)
[2019-03-19] MEDS: POLYETHYLENE GLYCOL POWDER 17 GM PACK PO SCH (10:50)
== END 2019-03-19 10:55 | disposition home or self-care (01) ==
LOC: N.ED 10:50 → N.EDINP 10:50 → N.4E 15:10
PROVIDERS: ADMIT Internal Medicine; ATTEND Internal Medicine